=== PATIENT | female | born 1945 | race Caucasian/White ===

== ENCOUNTER 2021-10-29 15:10 | Emergency (ER) | payer OTHER, MEDICAID ==
[~2021-10-29] VITALS: Ht 157.5 cm; Wt 102.1 kg
[2021-10-29 15:15] VITALS: BP 98/62
--- NOTE | 2021-10-29 15:15 | NUR ---
BROUGHT TO 10 VIA GURNEY BY EMS
--- NOTE | 2021-10-29 15:20 | NUR ---
SAAD FROM [facility] S/P GROUND LEVEL FALL HITTING HEAD. DENIES LOC, AAOX4, NONAMBULATORY, DENIES NAUSEA OR VOMITING, NO WOUND OR BLEEDING OR SWELLING NOTED ON THE SITE OF LANDING. GCS15, STATES ASA 81MG PO DAILY, PER EMS AT [facility] AAO, VSS.
--- NOTE | 2021-10-29 15:42 | NUR ---
PT WENT FOR XR
--- NOTE | 2021-10-29 16:25 | NUR ---
pt back from imaging
--- NOTE | 2021-10-29 16:27 | NUR ---
foot wound noted on right foot.
--- NOTE | 2021-10-29 16:35 | NUR ---
wound being evaluated by ermamy
[2021-10-29] MEDS ORDERED: BACI1PAC6 TP (16:51)
[2021-10-29] MEDS ORDERED: BACITRACIN OINT 500 UNITS/GM PKT TP ONE ×2 (16:59→17:00)
--- NOTE | 2021-10-29 17:01 | NUR ---
called john [facility]. per staff, no transport available from facility. will arrange for transport.
--- NOTE | 2021-10-29 17:04 | NUR ---
NON ADHERENT 5X8 PLACED ON PT R ELBOW/ FOREARM
--- NOTE | 2021-10-29 17:11 | NUR ---
candelaria bartlett aware of patient dc. will arrange transport and the facility staff will assist her back to her room.
[2021-10-29 17:12] VITALS: BP 132/67
--- NOTE | 2021-10-29 17:15 | NUR ---
Patient discharged with v/s stable. Written and verbal after care instructions given and explained. Patient alert, oriented and verbalized understanding of instructions. Wheel Chair Assisted with to custodial. All questions addressed prior to discharge. ID band removed. Patient advised to follow up with PMD. Rx of bacitracin given. Patient educated on indication of medication including possible reaction and side effects. Opportunity to ask questions provided and answered. pt assisted to wheelchair for uber transport
== END 2021-10-29 17:15 | disposition home or self-care (01) ==
LOC: MED 15:10
DX: S50.311A Abrasion of right elbow, initial encounter (principal); S09.90XA Unspecified injury of head, initial encounter; M54.2 Cervicalgia; Z79.899 Other long term (current) drug therapy; Z88.5 Allergy status to narcotic agent; W01.0XXA Fall on same level from slipping, tripping and stumbling without subsequent striking against object, initial encounter; Y93.89 Activity, other specified; Y92.89 Other specified places as the place of occurrence of the external cause; Y99.8 Other external cause status
CPT/HCPCS: 70450; 72050; 99284

== ENCOUNTER 2022-01-23 14:19 | Inpatient (IN) | payer OTHER, MEDICAID ==
[~2022-01-23] VITALS: Ht 154.9 cm; Wt 95.3 kg
[~2022-01-23 14:19] MED LIST: BACI1PAC6 TP
[2022-01-23] MEDS ORDERED: NACL 0.9% 1,000 ML IV SCH (14:30)
[2022-01-23] MEDS ORDERED: cefTRIAXone 1,000 MG in DEXT 5% MINI-BAG PLUS 50 ML IV ONE (14:30)
[2022-01-23 14:36] VITALS: BP 82/23
--- NOTE | 2022-01-23 15:01 | NUR ---
76 y/o female biba from [facility], pt presents to ed with c/o right shoulder and neck pain, pt in c collar at this time for precaution placed by amr. pt had witnessed syncopal fall in front of staff after stating she felt dizzy. pt states she did not have her oxygen on her at time of fall and thinks that may have been cause. pt on scene oxygen saturation was 82% on ra and started on nc 3L and brought back up to 98%. pt currently on 5L nc saturation at 94%. a&ox4, unable to ambulate at this time. skin pink/warm/dry. denies n/v/d, chills, fever, cough or sore throat. describes pain as dull 8/10. pmh: dm2, copd, lung ca, polyneuropathy, hld, htn, gerd allergy: codeine med: see list
[2022-01-23 15:06] LABS: BASOPHILS # (AUTO) 0.2 K/uL (0.00-0.22); BASOPHILS % (AUTO) 1.3 % (0.0-2.0); EOSINOPHILS # (AUTO) 0.3 K/uL (0-0.4); EOSINOPHILS % (AUTO) 2.1 % (0.0-4.0); HEMOGLOBIN 12.9 g/dL (12.0-16.0); LYMPHOCYTES # (AUTO) 2.7 K/uL (2.5-16.5); LYMPHOCYTES % (AUTO) 21.6 % (20.5-51.1); MEAN CORPUSCULAR HEMOGLOBIN 31 pg (27-31); MEAN CORPUSCULAR HGB CONC 33 g/dL (33-37); MONOCYTES # (AUTO) 0.8 K/uL (0.8-1.0); MONOCYTES % (AUTO) 6.9 % (1.7-9.3); NEUTROPHILS # (AUTO) 8.4 K/uL (1.8-7.7); NEUTROPHILS % (AUTO) 68.1 % (42.2-75.2); PLATELET COUNT (AUTO) 350 K/uL (140-450); RED BLOOD CELL COUNT(AUTO) 4.19 MIL/uL (4.20-5.40); RED CELL DISTRIBUTION WIDTH 13.8 % (11.6-13.7); WHITE BLOOD COUNT (AUTO) 12.3 K/uL (4.8-10.8)
--- NOTE | 2022-01-23 15:20 | NUR ---
# 8 FR Urinary catheter inserted utilizing sterile technique. Immediate return of 30 ml clear, yellow urine noted. Urine sample collected and sent to lab. Pt tolerated procedure well.
[2022-01-23 15:23] LABS: ANION GAP 13.8 (8-16); ASPARTATE AMINOTRANSFERASE 12 U/L (15-37); CARBON DIOXIDE 28.2 mmol/L (21-32); CHLORIDE 102 mmol/L (98-107); CREATININE 2.2 mg/dL (0.6-1.3); GLUCOSE 87 mg/dL (74-106); SODIUM SERUM 139 mmol/L (136-145); TOTAL BILIRUBIN 0.3 mg/dL (0.0-1.0); UREA NITROGEN, BLOOD 41 mg/dL (7-18)
[2022-01-23] MEDS ORDERED: cefTRIAXone 1,000 MG VIAL ONE (15:26)
[2022-01-23] MEDS ORDERED: ALBU1.25 NEB (16:07)
[2022-01-23] MEDS ORDERED: BACI1PAC6 TP (16:07)
[2022-01-23] MEDS ORDERED: EMPA10TA PO (16:07)
[2022-01-23] MEDS ORDERED: INSU100V17 SQ (16:07)
[2022-01-23] MEDS ORDERED: LISI2.5T12 PO (16:07)
[2022-01-23] MEDS ORDERED: ASPI-1749 PO (16:07)
[2022-01-23] MEDS ORDERED: FAMO-90 PO (16:07)
[2022-01-23] MEDS ORDERED: BRIN10SU OP (16:07)
[2022-01-23] MEDS ORDERED: GABA-640 PO (16:07)
[2022-01-23] MEDS ORDERED: ERGO-30 PO (16:07)
[2022-01-23] MEDS ORDERED: SIMV10TA93 PO (16:07)
[2022-01-23] MEDS ORDERED: DULO60EC1 PO (16:07)
[2022-01-23] MEDS ORDERED: HUM SUBQ (16:07)
[2022-01-23] MEDS ORDERED: HYDR-5191 PO (16:07)
[2022-01-23] MEDS ORDERED: LATA7.5D OP (16:07)
[2022-01-23] MEDS ORDERED: ACET-2214 PO (16:07)
[2022-01-23] MEDS ORDERED: BUPR-160 PO (16:07)
[2022-01-23 16:15] LABS: APPEARANCE,URINE CLEAR (CLEAR); BILIRUBIN,URINE NEGATIVE (NEGATIVE); BLOOD, URINE NEGATIVE (NEGATIVE); COLOR,URINE YELLOW (YELLOW); LEUKOCYTE ESTERASE ,URINE NEGATIVE (NEGATIVE); NITRITE, URINE NEGATIVE (NEGATIVE); PH,URINE 5.5 (5.0-9.0); UGLUCOSE 3+ (NEGATIVE)
--- NOTE | 2022-01-23 16:36 | NUR ---
Patient noted to have existing wounds upon arrival to ER. Photos taken of wound and placed in chart. Wound covered with dressing. Physician informed. bottom of left foot open wound.
[2022-01-23] MEDS ORDERED: POTASSIUM CHLORIDE 10 MEQ TABER PO PRN (17:45)
[2022-01-23] MEDS ORDERED: DOCUSATE SODIUM 100 MG GELCAP PO PRN (17:45)
[2022-01-23] MEDS ORDERED: LORazepam 2 MG/ML VIAL IVP PRN (17:45)
[2022-01-23] MEDS ORDERED: ONDANSETRON 4 MG/2 ML VIAL IVP PRN (17:45)
[2022-01-23] MEDS ORDERED: ZOLPIDEM 10 MG TAB PO PRN (17:45)
[2022-01-23] MEDS ORDERED: MAG SULF 2000 MG/WATER PREMIX 50 ML IV PRN (17:45)
[2022-01-23] MEDS ORDERED: DEXTROSE 50% 50 ML SYR IVP PRN (17:50)
--- NOTE | 2022-01-23 17:52 | NUR ---
VASILE GUERRERO [phone] called (person to notify) jason informed to speak with sister for update, family was informed about current status and that pt will be admitted to hospital
[2022-01-23] MEDS: NACL 0.9% 1,000 ML IV SCH (18:13)
--- NOTE | 2022-01-23 18:31 | NUR ---
Patient appears to be resting comfortably in bed. Vital Signs within normal limits. Respirations even and unlabored.
--- NOTE | 2022-01-23 20:14 | NUR ---
Patient will be admitted to care of Dr. Gonzalez. Admited to med-surg. Will go to room 122-b. Belongings list completed. Report to SAVANNA Garcia.
--- NOTE | 2022-01-23 20:17 | NUR ---
The patient's care was reviewed and supervised by Mary Noonan RN.
--- NOTE | 2022-01-23 20:20 | NUR ---
PT TRANSPORTED VIA GURNEY FROM ER. PT CAME IN FOR MECHANICAL FALL. PT IS AAOX4. PT IS ON NC 4L. PT NOT IN ANY DISTRESS. PT NOT ABLE TO AMBULATE. PT AMBULATES WITH WALKER AT HOME. PT HAS LEFT AC 18 GAUGE RUNNING NS 75 CC/HR. PT HAS ULCER ON LEFT FOOT PLANTAR. PT MISSING TOES FROM RIGHT FOOT. WAS TAKEN OFF SEVERAL YEARS AGO. PLAN OF CARE DISCUSSED. WILL CONTINUE TO MONITOR THE PT.
[2022-01-23 20:30] VITALS: BP 149/68
--- NOTE | 2022-01-23 21:13 | NUR ---
PT WAS ASSISTED TO BEDSIDE COMMODE. NO DIZZINESS. PT ABLE TO STAND WELL. NO OTHER COMPLAINS WILL CONTINUE TO MONITOR THE PT.
[2022-01-23] MEDS: INSULIN LISPRO SLIDING SCALE 100 UNITS/ML VIAL SUBQ PRN (21:46)
[2022-01-23] MEDS: BLOOD GLUCOSE MONITORING 1 DEV DEV FS SCH (21:47)
--- NOTE | 2022-01-24 02:15 | NUR ---
PT IS SLEEPING IN BED COMFORTABLY. PT NOT IN ANY ACUTE DISTRESS. VISIBLE RISE AND CHEST FALL. CALL LIGHT WITHIN REACH. WILL CONTINUE TO MONITOR THE PT.
[2022-01-24 04:00] VITALS: BP 133/62
--- NOTE | 2022-01-24 04:15 | NUR ---
VITAL SIGNS TAKEN AND STABLE. DENIES PAIN AND HAS NO COMPLAINS. WILL CONTINUE TO MONITOR THE PT.
[2022-01-24 05:51] LABS: BASOPHILS # (AUTO) 0.1 K/uL (0.00-0.22); BASOPHILS % (AUTO) 1.1 % (0.0-2.0); EOSINOPHILS # (AUTO) 0.3 K/uL (0-0.4); EOSINOPHILS % (AUTO) 3.2 % (0.0-4.0); HEMATOCRIT 38.5 % (36-48); HEMOGLOBIN 12.6 g/dL (12.0-16.0); LYMPHOCYTES # (AUTO) 2.1 K/uL (2.5-16.5); LYMPHOCYTES % (AUTO) 22.6 % (20.5-51.1); MEAN CORPUSCULAR HEMOGLOBIN 31 pg (27-31); MEAN CORPUSCULAR HGB CONC 33 g/dL (33-37); MEAN CORPUSCULAR VOLUME 93.8 fL (80-94); MONOCYTES # (AUTO) 0.6 K/uL (0.8-1.0); MONOCYTES % (AUTO) 6.3 % (1.7-9.3); NEUTROPHILS # (AUTO) 6.3 K/uL (1.8-7.7); NEUTROPHILS % (AUTO) 66.8 % (42.2-75.2); PLATELET COUNT (AUTO) 292 K/uL (140-450); RED BLOOD CELL COUNT(AUTO) 4.11 MIL/uL (4.20-5.40); RED CELL DISTRIBUTION WIDTH 13.8 % (11.6-13.7); WHITE BLOOD COUNT (AUTO) 9.5 K/uL (4.8-10.8)
[2022-01-24 05:53] LABS: ANION GAP 14.3 (8-16); CARBON DIOXIDE 24.9 mmol/L (21-32); CHLORIDE 105 mmol/L (98-107); CREATININE 1.6 mg/dL (0.6-1.3); GLUCOSE 156 mg/dL (74-106); POTASSIUM 4.2 mmol/L (3.5-5.1); SODIUM SERUM 140 mmol/L (136-145); UREA NITROGEN, BLOOD 35 mg/dL (7-18)
[2022-01-24] MEDS: BLOOD GLUCOSE MONITORING 1 DEV DEV FS SCH ×4 (06:37→20:41)
[2022-01-24] MEDS: INSULIN LISPRO SLIDING SCALE 100 UNITS/ML VIAL SUBQ PRN ×4 (06:38→20:43)
[2022-01-24] MEDS: NACL 0.9% 1,000 ML IV SCH ×2 (07:10→20:30)
--- NOTE | 2022-01-24 07:18 | NUR ---
ENDORSED PT TO DAYSHIFT RN FOR CONTINUITY OF CARE. PT IS STABLE.
[2022-01-24] MEDS: FAMOTIDINE 20 MG TAB PO SCH (09:42)
[2022-01-24] MEDS: SIMVASTATIN 10 MG TAB PO SCH (09:42)
[2022-01-24] MEDS: DULoxetine 30 MG CAPDR PO SCH (09:44)
[2022-01-24] MEDS: ASPIRIN 81 MG TAB.CHEW PO SCH (09:44)
--- NOTE | 2022-01-24 09:47 | NUR ---
ALL SCHEDULED MEDS GIVEN.
--- NOTE | 2022-01-24 10:16 | NUR ---
SCHEDULED MEDICATIONS DUE GIVEN. WILL CONTINUE TO MONITOR.
--- NOTE | 2022-01-24 13:00 | NUR ---
PT RESTING IN BED WITH EYES CLOSED. VISIBLE RISE AND CHEST FALL. CALL LIGHT WITHIN REACH. WILL CONTINUE TO MONITOR
[2022-01-24 14:19] VITALS: BP 110/57
[2022-01-24] MEDS: ACETAMINOPHEN 325 MG TAB PO PRN (16:56)
--- NOTE | 2022-01-24 16:57 | NUR ---
ALL SCHEDULED MEDS GIVEN.
--- NOTE | 2022-01-24 19:15 | NUR ---
RECEIVED REPORT FROM ROMERO CÁRDENAS RN FOR CONTINUITY OF CARE. PT ASLEEP NO DISTRESS NOTED. RR EVEN AND UNLABORED. NO SOB/ ON ROOM AIR. IV SITE ON LAC 20G RUNNING NS@75CC/HR. ALL SAFETY MEASURES IN PLACE.
[2022-01-24 20:00] VITALS: BP 125/62
[2022-01-25 04:00] VITALS: BP 144/58
[2022-01-25] MEDS: INSULIN LISPRO SLIDING SCALE 100 UNITS/ML VIAL SUBQ PRN (06:30)
[2022-01-25] MEDS: BLOOD GLUCOSE MONITORING 1 DEV DEV FS SCH (06:32)
[2022-01-25 06:53] LABS: BASOPHILS # (AUTO) 0.1 K/uL (0.00-0.22); BASOPHILS % (AUTO) 0.9 % (0.0-2.0); EOSINOPHILS # (AUTO) 0.3 K/uL (0-0.4); EOSINOPHILS % (AUTO) 3.2 % (0.0-4.0); HEMATOCRIT 35.6 % (36-48); HEMOGLOBIN 11.8 g/dL (12.0-16.0); LYMPHOCYTES # (AUTO) 2.7 K/uL (2.5-16.5); MEAN CORPUSCULAR HEMOGLOBIN 31 pg (27-31); MEAN CORPUSCULAR HGB CONC 33 g/dL (33-37); MEAN CORPUSCULAR VOLUME 93.9 fL (80-94); MONOCYTES # (AUTO) 0.3 K/uL (0.8-1.0); MONOCYTES % (AUTO) 3.7 % (1.7-9.3); NEUTROPHILS # (AUTO) 5.1 K/uL (1.8-7.7); NEUTROPHILS % (AUTO) 60.2 % (42.2-75.2); PLATELET COUNT (AUTO) 299 K/uL (140-450); RED BLOOD CELL COUNT(AUTO) 3.79 MIL/uL (4.20-5.40); RED CELL DISTRIBUTION WIDTH 13.8 % (11.6-13.7); WHITE BLOOD COUNT (AUTO) 8.5 K/uL (4.8-10.8)
[2022-01-25 06:57] LABS: ANION GAP 13.7 (8-16); CARBON DIOXIDE 26.2 mmol/L (21-32); CHLORIDE 104 mmol/L (98-107); CREATININE 1.5 mg/dL (0.6-1.3); GLUCOSE 209 mg/dL (74-106); POTASSIUM 4.9 mmol/L (3.5-5.1); SODIUM SERUM 139 mmol/L (136-145); UREA NITROGEN, BLOOD 32 mg/dL (7-18)
[2022-01-25] MEDS ORDERED: ALBUTEROL SULFATE/IPRATROPIU 3 ML SOL IH SCH (07:00)
--- NOTE | 2022-01-25 07:20 | NUR ---
RECEIVED REPORT FROM SUPERVISOR [employer]ERS NURSE FOR CONTINUITY OF CARE. PATIENT ASLEEP NO DISTRESS NOTED. RESPIRATION EVEN AND NOT LABORED NO SHORTNESS OF BREATH ON ROOM AIR. IV SITE ON LEFT AC KIM 20 RUNNING NS AT NS 75 CC/HOUR. ALL SAFETY MEASURE IN PLACE.
--- NOTE | 2022-01-25 07:44 | NUR ---
Patient's Plan of Care was discussed and reviewed with MOLDED GRID AND PARTS INSPECTOR:
[2022-01-25] MEDS ORDERED: ALGINATE ROPE MC SCH (09:00)
[2022-01-25] MEDS ORDERED: CEPH-588 PO (09:03)
[2022-01-25] MEDS: SIMVASTATIN 10 MG TAB PO SCH (09:26)
[2022-01-25] MEDS: DULoxetine 30 MG CAPDR PO SCH (09:26)
[2022-01-25] MEDS: ACETAMINOPHEN 325 MG TAB PO PRN (09:26)
[2022-01-25] MEDS: ASPIRIN 81 MG TAB.CHEW PO SCH (09:27)
[2022-01-25] MEDS: FAMOTIDINE 20 MG TAB PO SCH (09:27)
--- NOTE | 2022-01-25 09:31 | NUR ---
PATIENT TOOK ALL DUE MEDICATION AND COMPLAIN OF PAIN MEDICATED ORDERED.
--- NOTE | 2022-01-25 09:35 | NUR ---
WOUND CARE NOTE: WOUND CARE DONE WITH THIS 76 Y/O PT. AAX4. 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 OLD HEALED SCAR. AND LEFT DORSAL FOOT DIABETIC ULCER WITH FULL THICKNESS SKIN LOSS 1X1X0.3 CM WITH 100% RED GRANULAR BASE. MILD MACERATION AROUND THE BORDERS. MILD SEROUS DRAINAGE, NO ODOR, NO CREPITUS, NO EDEL-WOUND ERYTHEMA. NO EDEMA TO DORSAL FOOT. PER PT. SHE HAS BEEN FOLLOWING HER OWN BID CLERK AT [facility] AND WILL CONTINUE TO FOLLOW. PER PT. SHE USE ALGINATE DRESSING AT HOME. ALSO SHE IS WAITING DIABETIC FOOTWEAR. POC DISCUSSED WITH ALL QUESTION ANSWERED. POC DISCUSSED WITH PRIMARY NURSE. RECOMMENDATIONS: -CLEANSE LEFT FOOT ULCER WITH WOUND CARE SOLUTION, PAT DRY APPLY ALGINATE DRESSING AND COVER WITH DRY DRESSING 3X/WEEK ON MWF. -OFFLOAD PRESSURE WITH LLE ELEVATED -CONTINUE FOOT CARE DAILY AND FOLLOW UP WITH OUTPATIENT PODIATRY
[2022-01-25 10:22] VITALS: BP 105/54
--- NOTE | 2022-01-25 10:55 | NUR ---
PATIENT ALERT AND ORIENTED ABLE TO MAKE NEEDS KNOWN RESPIRATION EVEN AND NOT LABORED. PATIENT DISCHARGE PACKET INSTRUCTION GIVEN AND VERBALIZED UNDERSTANDING. NAME BAND REMOVED AND IV SITE WITH CATHETER INTACT. ALL BELONGING GIVEN TO PATIENT.. PATIENT WHEELED BY LAUNDRY OR DRY CLEANERS COUNTER CLERK ON A WHEELCHAIR TO FRONT ON FACILITY TRANSPORTATION SAFELY.
== END 2022-01-25 15:18 | disposition home or self-care (01) | DRG 312 ==
LOC: MED 14:19 → MTU 17:24
PROVIDERS: ADMIT Family Medicine; ATTEND Family Medicine
DX: I95.1 Orthostatic hypotension (principal); N17.0 Acute kidney failure with tubular necrosis; F43.9 Reaction to severe stress, unspecified; D64.9 Anemia, unspecified; R58 Hemorrhage, not elsewhere classified; D72.829 Elevated white blood cell count, unspecified; Z20.822 Contact with and (suspected) exposure to COVID-19; E11.9 Type 2 diabetes mellitus without complications; Z88.5 Allergy status to narcotic agent; Z79.899 Other long term (current) drug therapy; Z90.49 Acquired absence of other specified parts of digestive tract; Z79.82 Long term (current) use of aspirin; Z79.1 Long term (current) use of non-steroidal anti-inflammatories (NSAID); Z79.4 Long term (current) use of insulin
CPT/HCPCS: 36415; 70450; 71045; 72125; 73030; 73080; 73110; 80048; 80053; 81003; 82948; 83605; 83735; 83880; 84484; 85025; 87040; 87081; 87086; 93005; 94640; 96365; 99285; J0696; J7060

== ENCOUNTER 2023-02-01 12:59 | Emergency (ER) | payer OTHER, MEDICAID ==
[~2023-02-01] VITALS: Ht 154.9 cm; Wt 99.8 kg
[~2023-02-01 12:59] MED LIST changes: +ACET-2214 PO; +ALBU1.25 NEB; +ASPI-1749 PO; +BACI-418 TP; -BACI1PAC6 TP; +BRIN10SU OP; +BUPR-160 PO; +CEPH-588 PO; +DULO60EC1 PO; +EMPA10TA PO; +ERGO-30 PO; +FAMO-90 PO; +HUM SUBQ; +HYDR-5191 PO; +INSU100V17 SQ; +LATA7.5D OP; +LISI2.5T12 PO; +SIMV10TA93 PO; +[UNRECOGNIZED DRUG - CODE] PO
[2023-02-01 13:03] VITALS: BP 116/62; PULSE 60; RESP 15; TEMP 98.1; O2SAT 94
[2023-02-01] MEDS ORDERED: KETOROLAC 30 MG/ML VIAL IM ONE (14:05)
[2023-02-01] MEDS ORDERED: CYCLOBENZAPRINE 10 MG TAB PO ONE (14:05)
[2023-02-01 15:50] VITALS: O2SAT 97
[2023-02-01] MEDS ORDERED: CYCL-711 PO (16:45)
[2023-02-01] MEDS ORDERED: ACET-9520 PO (16:45)
[2023-02-01] MEDS ORDERED: IBUP-2216 PO (16:45)
[2023-02-01 17:50] VITALS: O2SAT 97
[2023-02-01 18:49] VITALS: BP 120/58; PULSE 79; RESP 18; O2SAT 99
== END 2023-02-01 18:49 | disposition home or self-care (01) ==
LOC: MED 12:59
DX: S22.41XA Multiple fractures of ribs, right side, initial encounter for closed fracture (principal); J44.9 Chronic obstructive pulmonary disease, unspecified; E11.9 Type 2 diabetes mellitus without complications; K21.9 Gastro-esophageal reflux disease without esophagitis; Z88.5 Allergy status to narcotic agent; Z79.899 Other long term (current) drug therapy; Z85.118 Personal history of other malignant neoplasm of bronchus and lung; Z85.528 Personal history of other malignant neoplasm of kidney; W01.0XXA Fall on same level from slipping, tripping and stumbling without subsequent striking against object, initial encounter; Y93.89 Activity, other specified; Y92.098 Other place in other non-institutional residence as the place of occurrence of the external cause; Y99.8 Other external cause status
CPT/HCPCS: 70450; 71045; 72125; 72128; 72131; 72170; 73030; 96372; 99291; J1885

== ENCOUNTER 2023-03-28 12:12 | Emergency (ER) | payer OTHER, MEDICAID ==
[~2023-03-28] VITALS: Ht 167.6 cm; Wt 81.6 kg
[~2023-03-28 12:12] MED LIST changes: -BACI-418 TP; -BRIN10SU OP; -CEPH-588 PO; +CYCL-711 PO; -EMPA10TA PO; -FAMO-90 PO; -HYDR-5191 PO; +IBUP-2216 PO; -LATA7.5D OP; -LISI2.5T12 PO
[2023-03-28 12:16] VITALS: BP 90/55; PULSE 78; RESP 20; TEMP 98.3; O2SAT 98
[2023-03-28] MEDS ORDERED: NACL 0.9% 2,000 ML IV ONE (13:00)
[2023-03-28 13:33] LABS: BASOPHILS # (AUTO) 0.1 K/uL (0.00-0.22); BASOPHILS % (AUTO) 1.2 % (0.0-2.0); EOSINOPHILS # (AUTO) 0.1 K/uL (0-0.4); EOSINOPHILS % (AUTO) 1.6 % (0.0-4.0); HEMATOCRIT 37.6 % (36-48); HEMOGLOBIN 12.4 g/dL (12.0-16.0); LYMPHOCYTES # (AUTO) 1.9 K/uL (2.5-16.5); LYMPHOCYTES % (AUTO) 23.7 % (20.5-51.1); MEAN CORPUSCULAR HEMOGLOBIN 31 pg (27-31); MEAN CORPUSCULAR HGB CONC 33 g/dL (33-37); MEAN CORPUSCULAR VOLUME 92.8 fL (80-94); MONOCYTES # (AUTO) 0.7 K/uL (0.8-1.0); MONOCYTES % (AUTO) 8.9 % (1.7-9.3); NEUTROPHILS # (AUTO) 5.2 K/uL (1.8-7.7); NEUTROPHILS % (AUTO) 64.6 % (42.2-75.2); PLATELET COUNT (AUTO) 243 K/uL (140-450); RED BLOOD CELL COUNT(AUTO) 4.05 MIL/uL (4.20-5.40); WHITE BLOOD COUNT (AUTO) 8.1 K/uL (4.8-10.8)
[2023-03-28] MEDS ORDERED: cefTRIAXone 1,000 MG VIAL ONE (13:34)
[2023-03-28 13:47] LABS: ALANINE AMINOTRANSFERASE 17 U/L (12-78); ALBUMIN 2.6 g/dL (3.4-5.0); ALKALINE PHOSPHATASE 113 U/L (50-136); ANION GAP 10.9 (8-16); ASPARTATE AMINOTRANSFERASE 15 U/L (15-37); CALCIUM 7.9 mg/dL (8.5-10.1); CARBON DIOXIDE 26.3 mmol/L (21-32); CHLORIDE 104 mmol/L (98-107); CREATININE 1.7 mg/dL (0.6-1.3); GLUCOSE 168 mg/dL (74-106); POTASSIUM 4.2 mmol/L (3.5-5.1); SODIUM SERUM 137 mmol/L (136-145); TOTAL BILIRUBIN 0.3 mg/dL (0.0-1.0); TOTAL PROTEIN, SERUM 6.8 g/dL (6.4-8.2); UREA NITROGEN, BLOOD 30 mg/dL (7-18)
[2023-03-28 13:52] LABS: LACTIC ACID 1.2 mmol/L (0.4-2.0)
[2023-03-28 14:09] LABS: CREATINE KINASE, TOTAL 97 U/L (26-192)
[2023-03-28 15:27] LABS: APPEARANCE,URINE CLEAR (CLEAR); BILIRUBIN,URINE NEGATIVE (NEGATIVE); BLOOD, URINE TRACE-I (NEGATIVE); COLOR,URINE YELLOW (YELLOW); LEUKOCYTE ESTERASE ,URINE NEGATIVE (NEGATIVE); NITRITE, URINE NEGATIVE (NEGATIVE); PROTEIN,URINE 1+ (NEGATIVE); UGLUCOSE 3+ (NEGATIVE); UROBILINOGEN,URINE 0.2 EU/dL (0.2 - 1)
[2023-03-28 15:37] LABS: BACTERIA,URINE FEW /HPF (None Seen); SQUAMOUS EPITHELIAL CELL,UR 4-10 (MOD) /LPF (0-3 (FEW))
[2023-03-28 15:45] VITALS: O2SAT 94
[2023-03-28 17:01] VITALS: TEMP 98.3
[2023-03-28 19:52] VITALS: BP 155/68; PULSE 83; RESP 16; O2SAT 96
== END 2023-03-28 21:05 | disposition home or self-care (01) ==
LOC: MED 12:12
DX: I95.9 Hypotension, unspecified (principal); M25.562 Pain in left knee; M25.522 Pain in left elbow; J44.9 Chronic obstructive pulmonary disease, unspecified; I11.9 Hypertensive heart disease without heart failure; E11.9 Type 2 diabetes mellitus without complications; Z79.899 Other long term (current) drug therapy; Z79.4 Long term (current) use of insulin; Z88.5 Allergy status to narcotic agent; W18.30XA Fall on same level, unspecified, initial encounter; Y93.89 Activity, other specified; Y92.89 Other specified places as the place of occurrence of the external cause; Y99.8 Other external cause status
CPT/HCPCS: 36415; 70450; 71045; 71275; 72125; 73080; 73562; 80053; 81001; 82550; 82948; 83605; 83880; 84484; 85025; 85379; 87040; 87086; 93005; 96361; 96365; 99285; J0696; J7030; Q9967